=== PATIENT | female | born 1985 | race Caucasian/White ===

== ENCOUNTER 2017-10-20 22:46 | Emergency (ER) | payer OTHER ==
[2017-10-21] MEDS: ACETAMINOPHEN 500 MG TAB PO (01:13)
[2017-10-21] MEDS: KETOROLAC 30 MG INJ IV (01:13)
[2017-10-21 01:23] LABS: ADD UMIC YES; UR ASCORBIC ACID 40 mg/dL (NEGATIVE); UR BACTERIA FEW /HPF (NONE SEEN); UR BILIRUBIN (Dip) NEGATIVE (NEGATIVE); UR BLOOD (Dip) NEGATIVE (NEGATIVE); UR CLARITY CLOUDY (CLEAR); UR COLOR YELLOW (YELLOW); UR GLUCOSE (Dip) NEGATIVE (NEGATIVE); UR KETONES (Dip) NEGATIVE (NEGATIVE); UR LEUKOCYTE ESTERASE (Dip) 2+ Leu/ul (NEGATIVE); UR MUCUS FEW /HPF (NONE SEEN); UR NITRITE (Dip) NEGATIVE (NEGATIVE); UR RBC 1 /HPF (0-5); UR SPECIFIC GRAVITY (Dip) 1.024 (1.003-1.030); UR SQUAMOUS EPITHELIAL CELL FEW /HPF (FEW); UR TOTAL PROTEIN (Dip) 1+ mg/dl (NEGATIVE); UR UROBILINOGEN (Dip) NEGATIVE (NEGATIVE); UR WBC 7 /HPF (0-5)
[2017-10-21] MEDS: SOD CHLORIDE 0.9% 1,000 ML IV (02:01)
[2017-10-21] MEDS: CEFTRIAXONE 1 GM/50 ML (PMX) 50 ML IVPB (02:01)
== END 2017-10-21 03:05 | disposition home or self-care (01) ==
LOC: FTE 22:46
DX: J10.1 Influenza due to other identified influenza virus with other respiratory manifestations (principal); N39.0 Urinary tract infection, site not specified; J18.9 Pneumonia, unspecified organism; J45.909 Unspecified asthma, uncomplicated
CPT/HCPCS: 71046; 81001; 87086; 87400; 96374; 96375; 99284-25

== ENCOUNTER 2018-01-28 15:46 | Emergency (ER) | payer SELFPAY, OTHER | END 2018-01-28 17:20 | disposition home or self-care (01) | LOC: E/R 15:46 | DX: S49.91XA Unspecified injury of right shoulder and upper arm, initial encounter (principal); J45.909 Unspecified asthma, uncomplicated; X58.XXXA Exposure to other specified factors, initial encounter; Y92.9 Unspecified place or not applicable; Z87.891 Personal history of nicotine dependence | CPT/HCPCS: 73030; 73030-RT; 99283-25 ==

== ENCOUNTER 2019-01-30 12:14 | Emergency (ER) | payer SELFPAY | END 2019-01-30 15:25 | disposition home or self-care (01) | LOC: FTE 12:14 | DX: J45.901 Unspecified asthma with (acute) exacerbation (principal); Z87.891 Personal history of nicotine dependence | CPT/HCPCS: 71045; 99283-25 ==